=== PATIENT | male | born 1970 | race Hispanic/Latino ===

== ENCOUNTER 2025-01-24 07:03 | Emergency (ER) | payer BC, SELFPAY ==
[2025-01-24 07:09] VITALS: BP 139/79
--- NOTE | 2025-01-24 07:42 | ED.GENMED ---
History of Present Illness
General
Chief Complaint: Dizziness
Source: patient
Exam Limitations: none
Time Seen by Provider: 01/24/25 07:30
History of Present Illness
History of Present Illness:
55-year-old male with history of anxiety manic depression bipolar disorder presents complaining of onset of diaphoresis and bilateral ears ringing with the shaking/dizzy sensation. This from sleep. He states that his heart was racing at that time.
He felt dry heaves. Currently on my exam he notes that he feels dizzy where he looks around and things look like they are vibrating or shaking. He also notes tingling to the bilateral fingers. No headache no chest pain no double vision.
Phy Exam
Physical Exam
Physical Exam:
General: Well-appearing male no acute respiratory distress
HEENT: Normocephalic atraumatic
Heart: Regular rate and rhythm
Lungs: Clear no wheeze
Abdomen soft nontender nondistended
Extremities: No cyanosis or edema
Course
Orders/Labs/Results
Orders:
Orders
01/24/25 07:41
Electrocardiogram (*1) Urgent
Reason for Study: Vertigo / Dizzy
CT Head W/o Iv Contrast Urgent
Comment:
Reason For Exam: dizzy
EKG- Treatment ONCE
01/24/25 08:03
Complete Blood Count/With Diff Urgent
Comprehensive Metabolic Panel Urgent
TSH Reflex To Free T4 Urgent
Troponin I Urgent
01/24/25 09:40
US Abdomen Complete/Upper Urgent
Comment:
Reason For Exam: elevated LFT
01/24/25 09:50
COVID-19 Antigen Urgent
Source: Nasal Swab
Abnormal Lab Results
01/24/25
08:03
WBC 4.3 L 10^3/uL
(4.8-10.8)
RDW 15.7 H %
(11.5-14.5)
Plt Count 73 L 10^3/uL
(130-400)
Absolute Lymphs (auto) 0.7 L 10^3/uL
(1.2-3.4)
Lymphocytes % 17.1 L %
(20.5-51.1)
Monocytes % 11.9 H %
(1.7-9.3)
Glucose 150 H mg/dl
(70-99)
Total Bilirubin 3.3 H mg/dl
(0.2-1.3)
AST 135 H U/L
(17-59)
ALT 126 H U/L
(0-50)
Alkaline Phosphatase 160 H U/L
(38-126)
01/24/25 08:03
01/24/25 08:03
Vital Signs
Initial and Last Documented VS:
Initial Vital Signs
Pulse Resp BP Pulse Ox
82 18 139/79 98
01/24/25 07:09 01/24/25 07:09 01/24/25 07:09 01/24/25 07:09
Last Documented Vital Signs
Temp Pulse Resp BP Pulse Ox
97.7 F 79 22 137/78 98
01/24/25 07:12 01/24/25 10:00 01/24/25 10:00 01/24/25 08:04 01/24/25 07:09
MDM/Problems Addressed
Differential Diagnosis Includes:
Patient with diaphoresis ringing in ears shakiness heart racing. Differential is large. Consider anxiety versus panic attack arrhythmia. He was diaphoretic. Will check EKG and troponin. CT of head pending
*Critical Care Note
Total Time (30-74mins, 75-104mins- exclusive of procedures): Not Applicable
Update Note
Update Note:
Workup here without significant finding other than elevated liver functions. Patient denies abdominal pain but he was nauseous earlier today. Ultrasound of the abdomen was ordered which showed cholelithiasis without evidence of cholecystitis.
COVID test was negative. CT head negative. Patient reexamined multiple times symptoms have resolved. I suspect underlying panic versus anxiety. Stable for discharge advise follow-up with family doctor to recheck liver functions
ED Attending Note
-
Portions of this chart may have been created with voice recognition software.� Occasional wrong word or��sound alike� substitutions may have occurred due to the inherent limitations of voice recognition software.
Discharge Plan
Departure
Patient Disposition: Home (Routine Discharge)
Date of Disposition: 01/24/25
Time of Disposition: 12:53
Patient with high blood pressure during this ER visit?: No
Discharge Problem:
LFT elevation
Instructions: Dizziness
Prescriptions:
No Action
buspirone 10 mg Tablet
10 mg PO TID
lamotrigine 50 mg Tablet Extended Release 24hr
50 mg PO HS
Referrals:
NONE,* [Family Provider] -
Activity Restrictions/Additional Instructions:
Please follow-up with your doctor to recheck your liver functions. Return here if needed otherwise
Interventions
Interventions:
*Risk Screen - Suicide Last Done: 01/24/25 07:09
*General Assessment Last Done: 01/24/25 07:09
*Neglect/Abuse Screening Last Done: 01/24/25 07:09
*ED- Fall Risk Assessment Last Done: 01/24/25 09:46
*ED COVID-19 Vaccine History Last Done: 01/24/25 09:46
ED- Neurological Assessment Last Done: 01/24/25 09:44
ED Swallowing Screen Last Done: 01/24/25 09:44
Discharge Date and Time
Print Language: SLOVAK
[2025-01-24 08:04] VITALS: BP 137/78
[2025-01-24 08:23] LABS: % Basophils 0.5 % (0-2); % Immature Granulocytes 0.5 % (0-0.5); % Lymphocytes 17.1 % (20.5-51.1); % Monocytes 11.9 % (1.7-9.3); Absolute Lymphocytes 0.7 10^3/uL (1.2-3.4); Absolute Monocytes 0.5 10^3/uL (0.1-0.6); Hemoglobin 13.5 g/dL (13.0-18.0); Mean Corp Hgb Conc. 33.8 g/dL (33.0-37.0); Mean Corpuscular Volume 82.8 fL (80.0-94.0); Nucleated Red Blood Cells % 0 % (-); Red Blood Cell Count 4.83 10^6/uL (4.70-6.10); Red Cell Dist. Width 15.7 % (11.5-14.5); White Blood Cell Count 4.3 10^3/uL (4.8-10.8)
[2025-01-24 08:28] LABS: ALT (SGPT) 126 U/L (0-50); AST (SGOT) 135 U/L (17-59); Albumin 4.5 g/dl (3.5-5.0); Alkaline Phosphatase 160 U/L (38-126); Blood Urea Nitrogen 12 mg/dl (9-20); Calcium 9.6 mg/dl (8.4-10.2); Carbon Dioxide 30 mmol/L (22-30); Chloride 104 mmol/L (98-107); Glucose 150 mg/dl (70-99); Sodium 141 mmol/L (135-145); Total Bilirubin 3.3 mg/dl (0.2-1.3); Total Protein 7.7 g/dl (6.3-8.2); eGFR > 60.00
[2025-01-24 08:33] LABS: Mean Platelet Volume 9.6 fL (7.4-10.4); Platelet Count 73 10^3/uL (130-400)
[2025-01-24 08:51] LABS: Troponin I < 0.012 ng/ml
[2025-01-24 08:58] LABS: TSH Reflex To Free T4 1.92 uIU/ml (0.47-4.68)
[2025-01-24 10:12] LABS: COVID-19 Antigen Negative (Negative)
[2025-01-24 12:48] VITALS: BP 147/82
[2025-01-24 13:00] VITALS: BP 145/75
== END 2025-01-24 13:33 | disposition home or self-care (01) ==
LOC: EMR 07:03
PROVIDERS: Physician Assistant; EMERGENCY PHYSICIAN Emergency Medicine
DX: R42 Dizziness and giddiness (principal); R79.89 Other specified abnormal findings of blood chemistry; H93.13 Tinnitus, bilateral; R20.2 Paresthesia of skin; R00.0 Tachycardia, unspecified; R61 Generalized hyperhidrosis; Z11.52 Encounter for screening for COVID-19; K80.20 Calculus of gallbladder without cholecystitis without obstruction; F41.9 Anxiety disorder, unspecified; F33.9 Major depressive disorder, recurrent, unspecified; F31.9 Bipolar disorder, unspecified; Z88.0 Allergy status to penicillin; Z88.2 Allergy status to sulfonamides
CPT/HCPCS: 99284; 70450; 76700; 80053; 84443; 84484; 85025; 87811; 93005